=== PATIENT | male | born 1955 | race Caucasian/White ===

== ENCOUNTER 2018-11-29 09:04 | Day surgery (SDC) | payer OTHER ==
[2018-11-28 12:53] VITALS: BMI 24.4
[~2018-11-29 09:04] MED LIST: Fentanyl 100 MCG/2 ML VIAL ONE; Fluorouracil 100 MG, Enoxaparin Sodium 25 MG, EPINEPHrine 0.3 MG in Ophthalmic Irrigati... IRR SCH; Midazolam HCl 2 mg/2 ml Vial ONE
[2018-11-29] MEDS ORDERED: Phenylephrine 2.5% Ophth Soln 5 ML BOT ONE (09:24)
[2018-11-29] MEDS ORDERED: Cyclopentolate 1% Opth Drop 2 ML BOT ONE (09:24)
[2018-11-29] MEDS ORDERED: Cyclopentolate 1% Opth Drop 2 ML BOT FS SCH (09:34)
[2018-11-29] MEDS ORDERED: Phenylephrine 2.5% Ophth Soln 5 ML BOT FS SCH (09:34)
[2018-11-29] MEDS ORDERED: Triamcinolone 40 MG/ML VIAL ONE (13:36)
[2018-11-29] MEDS ORDERED: Maxitrol 0.1% Opth Oint 3.5 GM TUBE ONE (13:36)
[2018-11-29] MEDS ORDERED: CEFAZOLIN 1 GM VIAL ONE (13:36)
[2018-11-29] MEDS ORDERED: Lidocaine 1% PF 5 ML VIAL ONE (13:36)
[2018-11-29] MEDS ORDERED: PROPOFOL 200 MG/20 ML VIAL ONE (13:36)
--- NOTE | 2018-11-29 22:46 | OP ---
DATE OF PROCEDURE: 11/29/2018 PREOPERATIVE DIAGNOSIS: Rhegmatogenous retinal detachment, right eye. POSTOPERATIVE DIAGNOSIS: Rhegmatogenous retinal detachment, right eye. PROCEDURE: Pars plana vitrectomy, retinal detachment repair, right eye. ANESTHESIA: Local with monitored anesthesia care. PROCEDURE IN DETAIL: The patient was identified in the preoperative holding area. Appropriate informed consent for the planned surgical procedure of the right eye had been obtained. The patient was transported to the operative suite, where appropriate cardiopulmonary monitoring was established. Local anesthesia was obtained using retrobulbar modified [place] Lint lid block using 50:50 mixture of 4% lidocaine with 0.75% bupivacaine. The patient was prepped and draped in the usual sterile manner for ophthalmic surgery on the right eye. Lid speculum was placed in the right eye. A 25-gauge trocar was placed in conjunctiva and sclera superotemporally, inferotemporally, and supranasally. Infusion line was placed inferotemporally. Light pipe vitreous cutter was inserted into the eye. Core vitrectomy was performed. Vitreous base was trimmed back carefully 360 degrees using wide field viewing system, and the tear was noted at the 4 o'clock position. All traction was removed from the tear. Posterior drained retinotomy was created. Complete air-fluid exchange was performed with 10 minutes being allowed for fluid to drain posteriorly. Laser barricade treatment was placed in the periphery temporally and nasally. 15% perfluoropropane gas was infused in the eye. Trocars were removed. Eye was noted to retain pressure well. Retrobulbar Kenalog and subconjunctival Ancef were placed. Antibiotic ointment was placed. The eye was patched and shielded. The patient was taken to the postoperative recovery unit in good condition, having suffered no immediate perioperative complications. The patient was instructed to keep the patch and shield on, avoid lifting or bending. Position left side down. Followup with Dr. Peñaloza. Job ID: [id number]
== END 2018-11-29 13:10 | disposition home or self-care (01) ==
LOC: SDC 09:04
PROVIDERS: ATTEND Ophthalmology Retina Specialist
PROC: 08B43ZZ Excision of Right Vitreous, Percutaneous Approach (ICD-10-PCS; principal; 2018-11-29)
DX: H33.001 Unspecified retinal detachment with retinal break, right eye (principal); I10 Essential (primary) hypertension
CPT/HCPCS: 67025; J0171; J1650; J2250; J3010; J9190

== ENCOUNTER 2022-12-28 11:41 | Outpatient (CLI) | payer OTHER | END 2022-12-28 11:42 | disposition home or self-care (01) | LOC: SCSMRI 11:41 | PROVIDERS: ATTEND Psychiatry & Neurology Neurology | DX: R41.3 Other amnesia (principal) | CPT/HCPCS: 70551 ==

== ENCOUNTER 2023-04-04 14:26 | Outpatient (CLI) | payer OTHER | END 2023-04-04 14:27 | disposition home or self-care (01) | LOC: SCSMRI 14:26 | PROVIDERS: ATTEND Family Medicine | DX: M54.32 Sciatica, left side (principal); M47.816 Spondylosis without myelopathy or radiculopathy, lumbar region; M47.817 Spondylosis without myelopathy or radiculopathy, lumbosacral region | CPT/HCPCS: 72148 ==